=== PATIENT | female | born 1945 | race Caucasian/White ===

== ENCOUNTER 2020-09-04 19:50 | Emergency (ER) | payer SELFPAY ==
[2020-09-04] MEDS ORDERED: METHYLPREDNISOLONE SOD SUCC 125 MG/2ML VIAL ONE (23:28)
[2020-09-05 02:15] VITALS: BP 125/71
== END 2020-09-05 01:00 | disposition home or self-care (01) ==
LOC: ER 19:56
DX: S00.83XA Contusion of other part of head, initial encounter (principal); W19.XXXA Unspecified fall, initial encounter; Y92.008 Other place in unspecified non-institutional (private) residence as the place of occurrence of the external cause; F03.90 Unspecified dementia, unspecified severity, without behavioral disturbance, psychotic disturbance, mood disturbance, and anxiety; F20.9 Schizophrenia, unspecified; I10 Essential (primary) hypertension; E78.5 Hyperlipidemia, unspecified; D64.9 Anemia, unspecified; Z86.73 Personal history of transient ischemic attack (TIA), and cerebral infarction without residual deficits
CPT/HCPCS: 70450; 72125; 99283; J2930

== ENCOUNTER 2021-03-07 12:46 | Emergency (ER) | payer MEDICARE ==
[~2021-03-07] VITALS: Ht 165.1 cm; Wt 70.3 kg
[2021-03-07 13:15] LABS: BASOPHILS % 0.4 % (0.0-1.0); EOSINOPHILS # (AUTO) 0.1 (0.0-0.4); EOSINOPHILS % 1.1 % (0.0-6.0); HEMATOCRIT 35.7 % (34.2-44.1); HEMOGLOBIN 11.2 g/dL (12.0-16.0); LYMPHOCYTES # (AUTO) 2.5 (1.0-3.2); LYMPHOCYTES % 23.8 % (18.0-39.1); MEAN CORPUSCULAR HEMOGLOBIN 27.2 pg (28-32); MEAN CORPUSCULAR HGB CONC 31.4 g/dL (31-35); MEAN CORPUSCULAR VOLUME 86.7 fL (81-99); MONOCYTES # (AUTO) 1.1 (0.2-0.8); NEUTROPHILS # (AUTO) 6.7 (2.1-6.9); NEUTROPHILS % 64.1 % (38.7-80.0); PLATELET COUNT 269 x10e3/uL (140-360); RED BLOOD COUNT 4.12 x10e6/uL (3.6-5.1); RED CELL DISTRIBUTION WIDTH 13.9 % (11.7-14.4)
[2021-03-07 13:35] LABS: ALBUMIN 3.5 g/dL (3.5-5.0); ALBUMIN/GLOBULIN RATIO 1.1 (0.8-2.0); CALCIUM 9.1 mg/dL (8.4-10.2); CREATININE, SERUM 0.92 mg/dL (0.57-1.11)
[2021-03-07 15:07] VITALS: BP 119/62
== END 2021-03-07 15:09 | disposition home or self-care (01) ==
LOC: ER 12:53
DX: S00.83XA Contusion of other part of head, initial encounter (principal); W19.XXXA Unspecified fall, initial encounter; Y93.01 Activity, walking, marching and hiking; Y92.128 Other place in nursing home as the place of occurrence of the external cause; F03.90 Unspecified dementia, unspecified severity, without behavioral disturbance, psychotic disturbance, mood disturbance, and anxiety; F20.9 Schizophrenia, unspecified
CPT/HCPCS: 36415; 70450; 80053; 85025; 99284

== ENCOUNTER 2022-05-17 11:24 | Inpatient (IN) | payer MEDICARE ==
[~2022-05-17] VITALS: Ht 317.5 cm; Wt 70.3 kg
[~2022-05-17 11:24] MED LIST: DEPAKOTE SPRIN125 MG PO; LIPITOR10 MG PO; LOSARTAN POTAS100 MG PO; MELATONIN3 MG PO; METOPROLOL TAR100 MG PO; NIFEDIPINE ER30 M1 PO; OLANZAPINE5 MG PO; PLAVIX75 MG PO
[2022-05-17] MEDS ORDERED: SODIUM CHLORIDE 0.9% 1000ML 1,000 ML IV SCH (12:00)
[2022-05-17 12:31] LABS: BASOPHILS # (AUTO) 0.1 (0.0-0.1); BASOPHILS % 0.5 % (0.0-1.0); HEMATOCRIT 41.1 % (34.2-44.1); HEMOGLOBIN 11.9 g/dL (12.0-16.0); LYMPHOCYTES # (AUTO) 1.3 (1.0-3.2); LYMPHOCYTES % 11.3 % (18.0-39.1); MEAN CORPUSCULAR VOLUME 93.4 fL (81-99); MONOCYTES # (AUTO) 0.9 (0.2-0.8); MONOCYTES % 8.3 % (4.4-11.3); NEUTROPHILS # (AUTO) 8.8 (2.1-6.9); NEUTROPHILS % 79.6 % (38.7-80.0); PLATELET COUNT 533 x10e3/uL (140-360); RED CELL DISTRIBUTION WIDTH 13.7 % (11.7-14.4)
[2022-05-17 12:39] LABS: CLARITY,URINE TURBID (CLEAR); COLOR,URINE YELLOW (YELLOW); LEUKOCYTE ESTERASE ,URINE TRACE (NEGATIVE)
[2022-05-17 12:47] LABS: KETONES,URINE 2+ (NEGATIVE); NITRITE,URINE NEGATIVE (NEGATIVE); PROTEIN,URINE DIPSTICK 2+ (NEGATIVE); URINE UROBILINOGEN 0.2 mg/dL (0.2 - 1); WBC,URINE (MAN) 21-50 /HPF (0-5)
[2022-05-17 12:48] LABS: BACTERIA,URINE MANY /HPF; EPITHELIAL CELLS,URINE FEW /LPF
[2022-05-17 12:55] LABS: ALBUMIN 3.5 g/dL (3.5-5.0); ALBUMIN/GLOBULIN RATIO 0.8 (0.8-2.0); ANION GAP 20.4 mmol/L (8-16); CREATININE, SERUM 0.8 mg/dL (0.57-1.11); POTASSIUM 4.4 mmol/L (3.5-5.1)
[2022-05-17] MEDS ORDERED: LACTATED RINGER'S 1,000 ML INJ ONE (13:15)
[2022-05-17] MEDS ORDERED: ACETAMINOPHEN 325 MG TAB PO ONE (13:15)
[2022-05-17] MEDS ORDERED: ACETAMINOPHEN 325 MG/10 ML UDC ONE (13:27)
[2022-05-17] MEDS ORDERED: PROCARDIA XL30 MG PO (13:32)
[2022-05-17] MEDS ORDERED: FEROSUL325 MG PO (13:32)
[2022-05-17] MEDS ORDERED: DOCUSATE SODIU100 MG PO (13:32)
[2022-05-17] MEDS ORDERED: ACETAMINOPHEN325 M1 PO (13:32)
[2022-05-17] MEDS ORDERED: EXELON1 EAC2 TD (13:32)
[2022-05-17] MEDS ORDERED: DIOVAN160 MG PO (13:32)
[2022-05-17] MEDS ORDERED: MULTI-VITAMIN1 EACH PO (13:32)
[2022-05-17] MEDS ORDERED: SENNA LAXATIVE8.6 MG PO (15:49)
[2022-05-17] MEDS ORDERED: CELEXA20 MG PO (15:49)
[2022-05-17 16:46] VITALS: BP 154/78
[2022-05-17 17:09] VITALS: BP 154/78
[2022-05-17] MEDS ORDERED: lidocaine patch TOP (19:02)
[2022-05-17] MEDS ORDERED: OLANZAPINE5 MG PO (19:06)
[2022-05-17 20:00] VITALS: BP 134/72
[2022-05-17 20:42] VITALS: BP 134/72
[2022-05-17] MEDS ORDERED: ONDANSETRON HCL INJ 2MG/ML 2ML 2 MG/ML VIAL IV PRN (21:00)
[2022-05-17] MEDS ORDERED: DOCUSATE SODIUM 100 MG CAP PO PRN (21:00)
[2022-05-17] MEDS: DOCUSATE SODIUM 100 MG CAP PO SCH (21:00)
[2022-05-17] MEDS ORDERED: PROMETHAZINE 12.5MG/ NACL 0.9% 12.5 MG/50 ML BAG IV PRN (21:00)
[2022-05-17] MEDS: OLANZAPINE 5 MG TAB PO SCH (21:00)
[2022-05-17] MEDS ORDERED: ACETAMINOPHEN 325 MG TAB PO PRN (21:00)
[2022-05-17] MEDS: DEXTROSE 5% 1,000 ML IV SCH (21:30)
[2022-05-18] VITALS (8 sets, daily range): BP systolic 121–160; BP diastolic 66–89
[2022-05-18 05:02] LABS: BASOPHILS # (AUTO) 0.1 (0.0-0.1); BASOPHILS % 0.5 % (0.0-1.0); EOSINOPHILS % 0.1 % (0.0-6.0); HEMATOCRIT 35.5 % (34.2-44.1); HEMOGLOBIN 10.1 g/dL (12.0-16.0); LYMPHOCYTES # (AUTO) 1.6 (1.0-3.2); LYMPHOCYTES % 17.2 % (18.0-39.1); MEAN CORPUSCULAR HEMOGLOBIN 27.1 pg (28-32); MEAN CORPUSCULAR HGB CONC 28.5 g/dL (31-35); MEAN CORPUSCULAR VOLUME 95.2 fL (81-99); MONOCYTES # (AUTO) 0.8 (0.2-0.8); MONOCYTES % 8.4 % (4.4-11.3); NEUTROPHILS # (AUTO) 6.8 (2.1-6.9); NEUTROPHILS % 73.4 % (38.7-80.0); PLATELET COUNT 363 x10e3/uL (140-360); RED BLOOD COUNT 3.73 x10e6/uL (3.6-5.1); RED CELL DISTRIBUTION WIDTH 13.5 % (11.7-14.4)
[2022-05-18 05:23] LABS: ANION GAP 15.3 mmol/L (8-16); CREATININE, SERUM 0.64 mg/dL (0.57-1.11); POTASSIUM 3.3 mmol/L (3.5-5.1)
[2022-05-18 05:50] LABS: MAGNESIUM 2.1 MG/DL (1.3-2.1); PHOSPHORUS 2.2 MG/DL (2.3-4.7)
[2022-05-18] MEDS: DIVALPROEX SODIUM 125 MG TABDR...ER PO SCH ×2 (08:16→17:59)
[2022-05-18] MEDS: FERROUS SULFATE 325 MG TAB PO SCH (08:16)
[2022-05-18] MEDS: CLOPIDOGREL BISULFATE 75 MG TAB PO SCH ×2 (08:16→17:59)
[2022-05-18] MEDS: SENNOSIDES 8.6 MG TAB PO SCH (08:17)
[2022-05-18] MEDS: OLANZAPINE 5 MG TAB PO SCH ×2 (08:17→21:41)
[2022-05-18] MEDS: METOPROLOL TARTRATE INJ 1 MG/ML VIAL IV SCH ×3 (08:25→17:51)
[2022-05-18] MEDS: RIVASTIGMINE TRANSDERMAL 9.5MG/24HOURS PATCH TD SCH (08:27)
[2022-05-18] MEDS ORDERED: CLONIDINE HCL 0.1 MG/24 HR 1 EA PATCH TOP SCH (09:00)
[2022-05-18] MEDS ORDERED: POTASSIUM PHOSPHATE 15 MM in SODIUM CHLORIDE 0.9% 250ML 250 ML IV ONE (09:00)
[2022-05-18] MEDS: DEXTROSE 5% 1,000 ML IV SCH (16:25)
[2022-05-18] MEDS: DOCUSATE SODIUM 100 MG CAP PO SCH (21:00)
[2022-05-19] VITALS (9 sets, daily range): BP systolic 102–150; BP diastolic 61–82
[2022-05-19] MEDS: DEXTROSE 5% 1,000 ML IV SCH ×4 (00:23→21:19)
[2022-05-19] MEDS: METOPROLOL TARTRATE INJ 1 MG/ML VIAL IV SCH ×4 (00:23→17:03)
[2022-05-19 08:19] LABS: MAGNESIUM 1.8 MG/DL (1.3-2.1); PHOSPHORUS 2.2 MG/DL (2.3-4.7)
[2022-05-19] MEDS: SENNOSIDES 8.6 MG TAB PO SCH (10:08)
[2022-05-19] MEDS: CLOPIDOGREL BISULFATE 75 MG TAB PO SCH ×2 (10:08→16:59)
[2022-05-19] MEDS: FERROUS SULFATE 325 MG TAB PO SCH (10:08)
[2022-05-19] MEDS: DIVALPROEX SODIUM 125 MG TABDR...ER PO SCH ×2 (10:08→17:03)
[2022-05-19] MEDS: OLANZAPINE 5 MG TAB PO SCH ×2 (10:09→21:20)
[2022-05-19] MEDS: BALSAM PERU/CASTOR OIL 60 GM OINT...G. TP SCH (10:11)
[2022-05-19] MEDS: RIVASTIGMINE TRANSDERMAL 9.5MG/24HOURS PATCH TD SCH (10:11)
[2022-05-19] MEDS: DOCUSATE SODIUM 100 MG CAP PO SCH (21:20)
[2022-05-20] VITALS (9 sets, daily range): BP systolic 101–145; BP diastolic 53–83
[2022-05-20] MEDS: METOPROLOL TARTRATE INJ 1 MG/ML VIAL IV SCH ×4 (06:00→17:01)
[2022-05-20] MEDS: DEXTROSE 5% 1,000 ML IV SCH ×2 (06:46→17:17)
[2022-05-20] MEDS: RIVASTIGMINE TRANSDERMAL 9.5MG/24HOURS PATCH TD SCH (09:02)
[2022-05-20] MEDS: CLOPIDOGREL BISULFATE 75 MG TAB PO SCH ×2 (09:02→17:00)
[2022-05-20] MEDS: DIVALPROEX SODIUM 125 MG TABDR...ER PO SCH ×2 (09:02→17:00)
[2022-05-20] MEDS: SENNOSIDES 8.6 MG TAB PO SCH (09:03)
[2022-05-20] MEDS: FERROUS SULFATE 325 MG TAB PO SCH (09:03)
[2022-05-20] MEDS: BALSAM PERU/CASTOR OIL 60 GM OINT...G. TP SCH (09:03)
[2022-05-20] MEDS: OLANZAPINE 5 MG TAB PO SCH ×2 (09:03→21:25)
[2022-05-20 10:46] LABS: ANION GAP 13.1 mmol/L (8-16); CREATININE, SERUM 0.6 mg/dL (0.57-1.11); MAGNESIUM 1.7 MG/DL (1.3-2.1); PHOSPHORUS 2.7 MG/DL (2.3-4.7); POTASSIUM 3.1 mmol/L (3.5-5.1)
[2022-05-20] MEDS ORDERED: KCL 20 MEQ PACKET/ ORAL SOLN NG NR (13:00)
[2022-05-20] MEDS ORDERED: FLUCONAZOLE 100 MG TAB PO SCH ×2 (15:45→16:15)
[2022-05-20] MEDS: DOCUSATE SODIUM 100 MG CAP PO SCH (21:26)
[2022-05-21 00:56] VITALS: BP 113/62
[2022-05-21] MEDS: DEXTROSE 5% 1,000 ML IV SCH ×2 (02:24→12:13)
[2022-05-21 05:33] VITALS: BP 134/60
[2022-05-21] MEDS: METOPROLOL TARTRATE INJ 1 MG/ML VIAL IV SCH ×3 (05:50→12:13)
[2022-05-21 07:48] VITALS: BP 118/57
[2022-05-21 08:12] LABS: BASOPHILS % 0.3 % (0.0-1.0); EOSINOPHILS # (AUTO) 0.1 (0.0-0.4); EOSINOPHILS % 1.1 % (0.0-6.0); HEMATOCRIT 33.7 % (34.2-44.1); LYMPHOCYTES # (AUTO) 1.8 (1.0-3.2); LYMPHOCYTES % 16.7 % (18.0-39.1); MEAN CORPUSCULAR HGB CONC 29.7 g/dL (31-35); MEAN CORPUSCULAR VOLUME 91.1 fL (81-99); MONOCYTES # (AUTO) 0.9 (0.2-0.8); MONOCYTES % 8.5 % (4.4-11.3); NEUTROPHILS # (AUTO) 7.8 (2.1-6.9); NEUTROPHILS % 72.8 % (38.7-80.0); PLATELET COUNT 316 x10e3/uL (140-360); RED CELL DISTRIBUTION WIDTH 13.1 % (11.7-14.4)
[2022-05-21 08:23] LABS: ALBUMIN 2.8 g/dL (3.5-5.0); ALBUMIN/GLOBULIN RATIO 0.9 (0.8-2.0); ANION GAP 13.9 mmol/L (8-16); CALCIUM 8.8 mg/dL (8.4-10.2); CREATININE, SERUM 0.56 mg/dL (0.57-1.11); POTASSIUM 3.9 mmol/L (3.5-5.1)
[2022-05-21 08:43] LABS: MAGNESIUM 1.7 MG/DL (1.3-2.1)
[2022-05-21 09:00] VITALS: BP 118/57
[2022-05-21 09:03] LABS: THYROID STIMULATING HORMONE 4.522 uIU/mL (0.350-4.940)
[2022-05-21] MEDS: OLANZAPINE 5 MG TAB PO SCH (09:35)
[2022-05-21] MEDS: FERROUS SULFATE 325 MG TAB PO SCH (09:35)
[2022-05-21] MEDS: CLOPIDOGREL BISULFATE 75 MG TAB PO SCH (09:35)
[2022-05-21] MEDS: DIVALPROEX SODIUM 125 MG TABDR...ER PO SCH (09:35)
[2022-05-21] MEDS: RIVASTIGMINE TRANSDERMAL 9.5MG/24HOURS PATCH TD SCH (09:36)
[2022-05-21] MEDS: BALSAM PERU/CASTOR OIL 60 GM OINT...G. TP SCH (09:37)
[2022-05-21] MEDS: SENNOSIDES 8.6 MG TAB PO SCH (09:41)
[2022-05-21] MEDS ORDERED: FOSFOMYCIN TROMETHAMINE 3 GM PACKET PO ONE (10:00)
[2022-05-21 11:23] VITALS: BP 159/63
[2022-05-21] MEDS ORDERED: ONDANSETRON HCL 4 MG ORAL DISINTEGRATING TAB PO PRN (13:45)
== END 2022-05-21 14:45 | DRG 871 ==
LOC: ER 11:56 → ERHOLD 13:41 → MED/SURG3 16:35
PROVIDERS: ADMIT Internal Medicine; ATTEND Internal Medicine
DX: A41.9 Sepsis, unspecified organism (principal); G93.41 Metabolic encephalopathy; E87.0 Hyperosmolality and hypernatremia; F03.B18 Unspecified dementia, moderate, with other behavioral disturbance; N39.0 Urinary tract infection, site not specified; E83.39 Other disorders of phosphorus metabolism; E87.6 Hypokalemia; B35.4 Tinea corporis; I10 Essential (primary) hypertension; L89.611 Pressure ulcer of right heel, stage 1; F20.9 Schizophrenia, unspecified; L89.152 Pressure ulcer of sacral region, stage 2; G47.00 Insomnia, unspecified; Z86.73 Personal history of transient ischemic attack (TIA), and cerebral infarction without residual deficits; Z88.0 Allergy status to penicillin; Z88.2 Allergy status to sulfonamides; Z91.041 Radiographic dye allergy status; Z88.1 Allergy status to other antibiotic agents; Z59.6 Low income; Z79.02 Long term (current) use of antithrombotics/antiplatelets; Z87.440 Personal history of urinary (tract) infections; R65.20 Severe sepsis without septic shock
CPT/HCPCS: 36415; 51700; 71045; 80048; 80053; 81001; 83605; 83735; 84100; 84295; 84443; 85025; 87040; 87086; 93005; 94799; 96361; 99252; 99285; J0692; J2405; J7030; J7050; J7070; J7121